=== PATIENT | male | born 1995 | race Two or more races ===

== ENCOUNTER 2023-04-18 15:25 | Emergency (ER) | payer OTHER, SELFPAY ==
[2023-04-18 15:34] VITALS: BP 121/83; PULSE 106; RESP 18; TEMP 37; O2SAT 99
[2023-04-18 16:11] LABS: Strep A DNA Probe* DETECTED (Not Detectd)
--- NOTE | 2023-04-18 16:18 | ED.GENADULT ---
HPI - General Adult General Time Seen by Provider: 16:18 Date Seen: 04/18/23 Chief complaint: Sore Throat Stated complaint: throat infection Time Seen by Provider: 04/18/23 16:18 Source: patient, RN notes reviewed, old records reviewed and interpreter for the deaf Mode of arrival: ambulatory Limitations: no limitations History of Present Illness HPI narrative: This 28yo male is coming into the ER with complaint of sore throat. Nursing staff did do a strep swab, I was able to review with him that this is positive upon seen him. He has had no fevers. He does feel the left side is more sore than the right. It does hurt to swallow but he can still swallow. He is having no difficulty breathing. He does feel pain radiating to his left ear at times. He is not aware of any ill contacts, no history of strep throat that he is aware of. He has had a sore throat for about 6 days now before coming in. Related Data Home Medications Medication Instructions Recorded Confirmed No Known Home Medications 04/18/23 04/18/23 Previous Rx's Medication Instructions Recorded penicillin V potassium 500 mg 500 mg PO TID #30 tabs 04/18/23 tablet Allergies Allergy/AdvReac Type Severity Reaction Status Date / Time No Known Drug Allergies Allergy Verified 04/18/23 15:37 Review of Systems Narrative: As per HPI. PFSH PFSH Social History Smoking Status: Never smoker How often do you have a drink containing alcohol: monthly or less AUDIT-C Alcohol total score: 1 Non-prescribed substance use: denies use Exam Const: Vital Signs, click to edit/add: Vital Signs - 24 hr 04/18/23 15:34 04/18/23 17:07 Temperature 98.6 F 98.6 F Pulse Rate [Pulse Oximeter] 106 H 106 H Respiratory Rate 18 18 Blood Pressure [Ri ght Upper Arm] 121/83 121/83 Pulse Oximetry 99 Oxygen Delivery Me thod Room Air This 28-year-old male is alert, interactive, no apparent distress. He maybe has some slight muffling to his voice but is able to speak, does not sound abnormal. Sq clear, conjugate gaze. TMs canals are perfectly normal with normal translucency and light reflects, no drainage. Does have some pain on opening his mouth wide but certainly can do it. Tonsils are symmetric but enlarged and erythematous. His tonsils are about 2 to 3+, there is still a good oral airway. Tongue and dentition normal. Neck is supple, no cervical adenopathy noted. Lungs are clear, CV regular rate and rhythm no murmur. Documenting provider has reviewed patient's vital signs: yes Course Course ED Course: Clinically patient has no asymmetry of his tonsils, do think he can try antibiotics. I do not feel that he needs any CT imaging of his neck at this time. We have discussed injectable penicillin verses oral antibiotics. He would prefer oral antibiotics. Will send a prescription for Pen-VK in for him. We did specifically review signs and symptoms for return, specifically did discuss peritonsillar abscess. He is aware to return if his sore throat is not improving over the next couple of days or if 1 side continues to worsen or be more problematic. Vital Signs Vital signs: Initial Vital Signs Temperature 98.6 F 04/18/23 15:34 Temperature Source Oral 04/18/23 15:34 Pulse Rate 106 H 04/18/23 15:34 Pulse Rhythm Regular 04/18/23 15:34 Respiratory Rate 18 04/18/23 15:34 Blood Pressure 121/83 04/18/23 15:34 Blood Pressure Mean 95 04/18/23 15:34 Blood Pressure Position Sitting 04/18/23 15:34 Pulse Oximetry 99 04/18/23 15:34 Oxygen Delivery Method Room Air 04/18/23 15:34 Vital Signs Temperature 98.6 F 04/18/23 15:34 Pulse Rate 106 H 04/18/23 15:34 Respiratory Rate 18 04/18/23 15:34 Blood Pressure 121/83 04/18/23 15:34 Pulse Oximetry 99 04/18/23 15:34 Oxygen Delivery Method Room Air 04/18/23 15:34 Temperature 98.6 F 04/18/23 17:07 Pulse Rate 106 H 04/18/23 17:07 Respiratory Rate 18 04/18/23 17:07 Blood Pressure 121/83 04/18/23 17:07 Pulse Oximetry 99 04/18/23 15:34 Oxygen Delivery Method Room Air 04/18/23 15:34 Medical Decision Making Lab Data Lab results reviewed: Yes I reviewed the patient's lab results Labs: Lab Results 04/18/23 Range/Units 15:42 Group A Strep DNA DETECTED A (Not Detectd) Discharge Plan Discharge Clinical Impression: Strep pharyngitis Patient Disposition: Home, Self-Care Condition: Stable Instructions: Strep Throat (ED) Additional Instructions: Take oral antibiotics as prescribed, start BRANNON today, do need to complete these. Can use Tylenol and/or ibuprofen per bottle directions as needed for pain control. If your sore throat is not improving over the next few days, is worsening at any point, have increased seen pain just on 1 side of the throat, do need to be re-evaluated. Froid los antibi?ticos orales seg?n lo recetado, comience hoy, debe completarlos. Puede usar Tylenol y/o ibuprofeno seg?n las instrucciones de la botella, seg?n sea necesario para controlar el dolor. Si alexander dolor de garganta no mejora en los pr?ximos d?as, o empeora en alg?n momento, kumar aumentado el dolor solo en un lado de la garganta, es necesario volver a evaluarlo. Activity Level: Activity as Tolerated Discharge Diet: Regular Prescriptions: New penicillin V potassium 500 mg tablet 500 mg PO TID Qty: 30 0RF No Action No Known Home Medications Stand Alone Forms: [employer] Info Instructions
[2023-04-18 17:07] VITALS: BP 121/83; PULSE 106; RESP 18; TEMP 37
== END 2023-04-18 17:07 | disposition home or self-care (01) ==
LOC: ED 17:05
PROVIDERS: Student in an Organized Health Care Education/Training Program; Emergency Provider Family Medicine
DX: J02.0 Streptococcal pharyngitis (principal)
CPT/HCPCS: 87651; 99282; 99283

== ENCOUNTER 2024-05-05 13:24 | Emergency (ER) | payer OTHER, SELFPAY ==
[2024-05-05 13:27] VITALS: BP 148/87; PULSE 83; RESP 18; TEMP 36.7; O2SAT 97; BMI 34.5
--- NOTE | 2024-05-05 15:35 | ED.EAR ---
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 He does clean his ears regularly, got a little dark wax out. He is not sure if it is plugged. He does note some nasal congestion but has not been sick with any cough or cold symptoms recently. Denies any antibiotic allergies. His hearing is described as muffled, is not hearing any ringing in his ear or tinnitus. Related Data Previous Rx's ?Medication ?Instructions ?Recorded penicillin V potassium 500 mg 500 mg PO TID #30 tabs 04/18/23 tablet amoxicillin 875 mg-potassium 1 tab PO BID #14 tabs 05/05/24 clavulanate 125 mg tablet fluticasone propionate 50 2 spray intranasal DAILY 2 weeks 05/05/24 mcg/actuation nasal #16 grams spray,suspension (Flonase Allergy Relief) Allergies Allergy/AdvReac Type Severity Reaction Status Date / Time No Known Drug Allergies Allergy Verified 05/05/24 13:36 Review of Systems Narrative: As per HPI. PFSH PFS Social History Smoking Status: Never smoker How often do you have a drink containing alcohol: monthly or less AUDIT-C Alcohol total score: 1 Non-prescribed substance use: denies use Exam Const: Vital Signs, click to edit/add: Vital Signs - 24 hr 05/05/24 13:27 Temperature 98.0 F Pulse Rate [Right Pulse Oximeter] 83 Respiratory Rate 18 Blood Pressure [Ri ght Upper Arm] 148/87 H Pulse Oximetry 97 Oxygen Delivery Me thod Room Air This 29-year-old male is alert, interactive, no apparent distress. Speech is normal. Pupils equal round reactive, sclera clear, extraocular muscles intact. Symmetrical facial function. Oropharynx with normal mucosa, no exudates erythema. He has no cervical adenopathy or neck masses. Right canal is normal, tympanic membrane has some erythema, there is mucoid to purulent-looking material bulging inferiorly in the tympanic membrane, loss of translucency, no light reflects. There is no drainage in the canal. Left TM canal are normal. CV regular rate and rhythm, no murmur. Documenting provider has reviewed patient's vital signs: yes Course Vital Signs Vital signs: Initial Vital Signs Temperature 98.0 F 05/05/24 13:27 Temperature Source Temporal Artery Scan 05/05/24 13:27 Pulse Rate 83 05/05/24 13:27 Pulse Rhythm Regular 05/05/24 13:27 Pulse Strength 3+ Normal 05/05/24 13:27 Respiratory Rate 18 05/05/24 13:27 Blood Pressure 148/87 H 05/05/24 13:27 Blood Pressure Mean 107 H 05/05/24 13:27 Blood Pressure Position Sitting 05/05/24 13:27 Pulse Oximetry 97 05/05/24 13:27 Oxygen Delivery Method Room Air 05/05/24 13:27 Vital Signs Temperature 98.0 F 05/05/24 13:27 Pulse Rate 83 05/05/24 13:27 Respiratory Rate 18 05/05/24 13:27 Blood Pressure 148/87 H 05/05/24 13:27 Pulse Oximetry 97 05/05/24 13:27 Oxygen Delivery Method Room Air 05/05/24 13:27 Temperature 98.0 F 05/05/24 13:27 Pulse Rate 83 05/05/24 13:27 Respiratory Rate 18 05/05/24 13:27 Blood Pressure 148/87 H 05/05/24 13:27 Pulse Oximetry 97 05/05/24 13:27 Oxygen Delivery Method Room Air 05/05/24 13:27 Discharge Plan Discharge Clinical Impression: Otitis media Qualifiers: Otitis media type: unspecified Chronicity: acute Qualified Code(s): H66.90 - Otitis media, unspecified, unspecified ear Patient Disposition: Home, Self-Care Condition: Stable Instructions: Ear Infection (ED) Additional Instructions: Start oral antibiotic and take as prescribed. Use nasal steroid as prescribed, follow package instructions on how to administer nasally. May take a few weeks for fluid to resolve but you should note some steady improvement. If you are not improving over the next couple weeks, or worsening at any point or have further concerns, do recommend re-evaluation. Activity Level: Activity as Tolerated Prescriptions: New amoxicillin-pot clavulanate 875-125 mg tablet 1 tab PO BID Qty: 14 0RF fluticasone propionate [Flonase Allergy Relief] 50 mcg/actuation spray,suspension 2 spray intranasal DAILY 14 Days Qty: 16 0RF Rx Instructions: administer into each nostril No Action penicillin V potassium 500 mg tablet 500 mg PO TID Qty: 30 0RF Follow Up/Referrals: Provider,Not a Local [Primary Care Provider] - Stand Alone Forms: [email or web address] Info Instructions
== END 2024-05-05 16:05 | disposition home or self-care (01) ==
LOC: ED 15:54
PROVIDERS: Emergency Provider Family Medicine
DX: H66.91 Otitis media, unspecified, right ear (principal)
CPT/HCPCS: 99283

== ENCOUNTER 2025-03-29 18:07 | Emergency (ER) | payer OTHER, SELFPAY ==
[2025-03-29 18:27] VITALS: BP 129/77; PULSE 76; RESP 16; TEMP 36.7; O2SAT 97
[2025-03-29 19:14] LABS: PCR FLU A Negative PCR FLU A (Negative); PCR FLU B Negative PCR FLU B (Negative); PCR RSV Negative PCR RSV (Negative); SARS PCR* Negative SARS-CoV-2 (Negative)
--- NOTE | 2025-03-29 20:53 | ED_ITS ---
HPI - General Adult General Chief complaint: Ear/Nose/Throat Problem Stated complaint: Pain in left ear Time Seen by Provider: 03/29/25 20:10 Source: patient Mode of arrival: ambulatory Limitations: no limitations History of Present Illness HPI narrative: 30-year-old [place]ic-speaking male presents to the ED with a 6 hour history of pain in the left ear. No fever. Nasal congestion, mild cough and mild sore throat noted as well. No trauma or injury. No pertinent travel. No sick contacts. Took 1 Tylenol tablet earlier today, this has worn off and symptoms have worsened again. Has not tried any other treatments. No history of ear surgeries. No drainage. Past medical history benign per his report no long-term medications, no allergies. ROS notable for the HEENT symptoms only. Denies other generalized, HEENT, respiratory or skin changes. Related Data Previous Rx's ?Medication ?Instructions ?Recorded amoxicillin 875 mg tablet 875 mg PO BID #20 tabs 03/29 Allergies Allergy/AdvReac Type Severity Reaction Status Date / Time No Known Drug Allergies Allergy Verified 03/29/25 18:24 PFSH PFSH Social History Smoking Status: Never smoker How often do you have a drink containing alcohol: monthly or less AUDIT-C Alcohol total score: 1 Non-prescribed substance use: denies use Exam Const: Vital Signs, click to edit/add: Vital Signs - 24 hr 03/29/25 18:27 Temperature 98.0 F Pulse Rate [Pulse Oximeter] 76 Respiratory Rate 16 Blood Pressure [Ri ght Upper Arm] 129/77 Pulse Oximetry 97 Oxygen Delivery Me thod Room Air Documenting provider has reviewed patient's vital signs: yes Common normals: no apparent distress General appearance: well kempt HENMT: Common normals: normocephalic Head and scalp: normocephalic Other: Clear mucus rhinorrhea noted. Right TM has normal light reflex but scarring consistent with prior ear infections and rupture. Normal canal. The left ear canal with some mild cerumen but I can see the TM clearly and it is red, dull and bulging. Also has scarring similar to opposite side. Oropharynx with acyanotic lips, moist membranes. There is a mild amount of erythema to the posterior pharynx, slightly blistery appearance but no malathi exudate. Eye: Common normals: conjunctivae normal General eye: normal appearance of both eyes Conjunctiva: conjunctiva(e) normal Neck & C-Spine: Other: Mild anterior cervical and submandibular lymphadenopathy Resp: Common normals: normal respiratory effort and no use of accessory muscles Effort & inspection: able to speak in complete sentences Cardio: Common normals: regular rate, regular rhythm, S1 normal heart sound, S2 normal heart sound and no murmurs Rate: regular rate Rhythm: regular r hythm Heart sounds: S1 normal and S2 normal Psych: Appearance: well kempt Attitude: engaged Activity/motor behavior: appropriate eye contact Insight: insight good Judgement: judgment good Skin: Common normals: no rashes or lesions noted General skin exam: no rashes or lesions noted Course Course ED Course: Interview completed with decorator store on video chat. Overall exam is reassuring. Not febrile, known shell signs of sepsis. Patient requests medications sent to outpatient pharmacy. We discussed bacterial versus viral etiology. Certainly more likely to be viral but with impending holiday, difficulty accessing care, prior scarring noted and severity, I do recommend antibiotic treatment. Rationale reviewed with patient. Counseled that there may be side effects from this and it will take several days before he notices any improvement. He verbalizes understanding and agreement. Amoxicillin 1000 mg p.o. x1 with 10 of Toradol x1 here in the ED. continue on amoxicillin 875 p.o. b.i.d. times 10 days. Counseled on Tylenol and ibuprofen. Alarm symptoms reviewed that would warrant ED re-evaluation which should be rare. Outpatient follow-up if not improved in 10 days Vital Signs Vital signs: Initial Vital Signs Temperature 98.0 F 03/29/25 18:27 Temperature Source Temporal Artery Scan 03/29/25 18:27 Pulse Rate 76 03/29/25 18:27 Respiratory Rate 16 03/29/25 18:27 Blood Pressure 129/77 03/29/25 18:27 Blood Pressure Mean 94 03/29/25 18:27 Pulse Oximetry 97 03/29/25 18:27 Oxygen Delivery Method Room Air 03/29/25 18:27 Vital Signs Temperature 98.0 F 03/29/25 18:27 Pulse Rate 76 03/29/25 18:27 Respiratory Rate 16 03/29/25 18:27 Blood Pressure 129/77 03/29/25 18:27 Pulse Oximetry 97 03/29/25 18:27 Oxygen Delivery Method Room Air 03/29/25 18:27 Temperature 98.0 F 03/29/25 18:27 Pulse Rate 76 03/29/25 18:27 Respiratory Rate 16 03/29/25 18:27 Blood Pressure 129/77 03/29/25 18:27 Pulse Oximetry 97 03/29/25 18:27 Oxygen Delivery Method Room Air 03/29/25 18:27 Medical Decision Making Lab Data Labs: Lab Results 03/29/25 Range/Units 18:30 SARS-CoV-2 (PCR) Negative SARS-CoV-2 (Negative) Influenza Type A (PCR) Negative PCR FLU A (Negative) Influenza Type B (PCR) Negative PCR FLU B (Negative) RSV (PCR) Negative PCR RSV (Negative) Discharge Plan Discharge Clinical Impression: Otitis media Patient Disposition: Home w/ Parent or Adult Condition: Stable Instructions: Ear Infection (ED) Additional Instructions: As we discussed, that left ear does look infected. It is difficult to tell if this is caused by a virus or bacterial infection. Antibiotics will only work against bacterial infections. Because you to have a fair amount of scarring on her eardrums from prior infections, I am inclined to think this could be bacterial. You also will have difficulty getting re-evaluated because of holiday if things do not improve but typically we would not use antibiotics unless you had symptoms for more than 3 days. In the special instance, I do recommend antibiotics. Have started you on amoxicillin. You that your 1st dose here in the emergency room. 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 Your given a dose of Toradol which is an anti- inflammatory non-narcotic pain medication. Continue using Tylenol 1000 mg every 6 hours and or ibuprofen 600 mg every 6 hours as needed for discomfort. It is also okay to use gentle knob-ltn-oxipspe sleep aids like melatonin, Benadryl or Unisom. It takes several days for the antibiotics to kick in to help you feel better. Please have this rechecked in the clinic if things are not improving in 7-10 days. Typically, this is an element that should be evaluated in clinic or urgent care. Venkatesh comentamos, el o?do momo parece estar infectado. Es dif?cil determinar si se trata de noam infecci?n viral o bacteriana. Los antibi?ticos solo son efectivos contra las infecciones bacterianas. Dado que presenta bastante cicatrizaci?n en los t?mpanos debido a infecciones anteriores, me inclino a pensar que podr?a ser bacteriana. Tambi?n tendr? dificultades para que la vuelvan a evaluar debido a las fiestas si no mejora, zena normalmente no recetar?dinorah antibi?ticos a menos que tuviera s?ntomas aren m?s de 3 d?as. En evita jarad particular, recomiendo antibi?ticos. Le he recetado amoxicilina. Rec ibi? la primera dosis aqu? en la yulia de emergencias. Recoja el tonia del medicamento en [facility] y t?garcia dos veces al d?a aren 10 d?as. Le administraron noam dosis de Toradol, que es un analg?sico antiinflamatorio no narc?venessa. Contin?e tomando Tylenol 1000 mg cada 6 horas o ibuprofeno 600 mg cada 6 horas seg?n sea necesario para el malestar. Tambi?n puede usar somn?feros suaves de venta guy venkatesh melatonina, Benadryl o Unisom. Los antibi?ticos tardan varios d?as en hacer efecto y aliviar los s?ntomas. Si no mejora en 7 a 10 d?as, por favor, acuda a la cl?gómez para noam revisi?n. Normalmente, evita tipo de afecci?n debe evaluarse en noam cl?gómez o centro de atenci?n de urgencias. Activity Level: No Restrictions Discharge Diet: Regular Prescriptions: New amoxicillin 875 mg tablet 875 mg PO BID Qty: 20 0RF Follow Up/Referrals: Provider,Not a Local [Primary Care Provider, Family Practice] Stand Alone Forms: [employer] Info Instructions
[2025-03-29] MEDS: AMOXICILLIN 250 MG CAPSULE 1000 MG PO (21:02)
[2025-03-29] MEDS: KETOROLAC 10 MG TABLET PO (21:02)
== END 2025-03-29 21:10 | disposition home or self-care (01) ==
LOC: ED 20:54
PROVIDERS: Emergency Provider Family Medicine
DX: H66.92 Otitis media, unspecified, left ear (principal)
CPT/HCPCS: 87631; 99283; A9270